=== PATIENT | female | born 1995 | race Caucasian/White ===

== ENCOUNTER 2017-11-09 04:05 | Emergency (ER) | payer OTHER ==
[2017-11-09] MEDS: TETRACAINE 0.5% 4 ML OPH RIGHT EYE (04:34)
[2017-11-09] MEDS: FLUORESCEIN STRIP RIGHT EYE (04:48)
== END 2017-11-09 05:17 | disposition home or self-care (01) ==
LOC: FTE 04:05
DX: S05.01XA Injury of conjunctiva and corneal abrasion without foreign body, right eye, initial encounter (principal); X58.XXXA Exposure to other specified factors, initial encounter; Y92.9 Unspecified place or not applicable
CPT/HCPCS: 99284